=== PATIENT | male | born 1985 | race Two or more races ===

== ENCOUNTER 2022-07-14 18:13 | Emergency (ER) | payer OTHER ==
[~2022-07-14] VITALS: Ht 193 cm; Wt 163.3 kg
[2022-07-14 18:18] VITALS: BP 161/95
--- NOTE | 2022-07-14 20:16 | NUR ---
Dr. Gregory examining patient.
[2022-07-14] MEDS ORDERED: GABAPENTIN 300 MG CAP PO ONE (20:25)
[2022-07-14] MEDS ORDERED: KETOROLAC 15 MG/ML VIAL IVP ONE (20:25)
[2022-07-14] MEDS ORDERED: methylPREDNISolone SS 125 MG/2 ML VIAL IVP ONE (20:25)
[2022-07-14 20:32] LABS: BASOPHILS % (AUTO) 0.3 % (0.0-2.0); EOSINOPHILS % (AUTO) 0.1 % (0.0-4.0); HEMATOCRIT 46.6 % (36-52); HEMOGLOBIN 15.5 g/dL (12.0-18.0); LYMPHOCYTES # (AUTO) 0.9 K/uL (2.0-11.5); LYMPHOCYTES % (AUTO) 7.3 % (20.5-51.1); MEAN CORPUSCULAR HEMOGLOBIN 28 pg (27-31); MEAN CORPUSCULAR HGB CONC 33 g/dL (33-37); MEAN CORPUSCULAR VOLUME 84.2 fL (80-94); MONOCYTES # (AUTO) 0.6 K/uL (0.8-1.0); MONOCYTES % (AUTO) 4.8 % (1.7-9.3); NEUTROPHILS # (AUTO) 10.3 K/uL (1.8-7.7); NEUTROPHILS % (AUTO) 87.5 % (42.2-75.2); PLATELET COUNT (AUTO) 228 K/uL (140-450); RED BLOOD CELL COUNT(AUTO) 5.53 MIL/uL (4.20-6.10); RED CELL DISTRIBUTION WIDTH 15.5 % (11.6-13.7); WHITE BLOOD COUNT (AUTO) 11.8 K/uL (4.8-10.8)
--- NOTE | 2022-07-14 20:32 | NUR ---
PT TAKEN TO BED 5
--- NOTE | 2022-07-14 20:45 | NUR ---
36 Y/O MALE BIBA FROM HOME C/O LOWER BACK PAIN RADIATING DOWN BILATERA LEGS X2 DAYS. PT REPORTS GOING TO [facility] LAST NIGHT AND WAS GIVEN ROBAXIN, NAPROXEN, LISINOPRIL AND PREDNISONE, PT TOOK THESE X1.5 HRS AGO. PT REPORTS NO RELIEF FROM MEDS. PT REPORTS HE HAS ONLY BEEN ABLE TO URINATE X1 TODAY. PT REPORTS NUMBNESS TO BILATERAL LEGS. DENIES RECENT INJURY/TRAUMA/FALLS PMH:HTN, PRE DM, CHRONIC BACK PAIN (X12 YRS) NKDA
[2022-07-14 20:54] LABS: ALBUMIN 4.3 g/dL (3.4-5.0); ANION GAP 12.2 (8-16); CARBON DIOXIDE 27.1 mmol/L (21-32); CREATININE 0.8 mg/dL (0.6-1.3); POTASSIUM 4.3 mmol/L (3.5-5.1); TOTAL BILIRUBIN 0.6 mg/dL (0.0-1.0)
--- NOTE | 2022-07-14 21:15 | NUR ---
Dr. Gregory examining patient.
--- NOTE | 2022-07-14 22:31 | NUR ---
PT RETURN CT
[2022-07-14] MEDS ORDERED: MORPHINE SULFATE 4 MG/ML SYR IVP ONE (22:35)
--- NOTE | 2022-07-14 23:55 | NUR ---
hilliard catheter inserted with immediate return dark aldair/ rust colored urine. ua to lab
[2022-07-15 00:23] LABS: APPEARANCE,URINE CLEAR (CLEAR); BILIRUBIN,URINE 1+ (NEGATIVE); BLOOD, URINE 3+ (NEGATIVE); COLOR,URINE BROWN (YELLOW); LEUKOCYTE ESTERASE ,URINE NEGATIVE (NEGATIVE); NITRITE, URINE NEGATIVE (NEGATIVE); PH,URINE 5.5 (5.0-9.0); UGLUCOSE NEGATIVE (NEGATIVE)
[2022-07-15 00:28] LABS: RBC,URINE TOO NUMEROUS TO COUN /HPF (0-5); WBC,URINE 0-5 /HPF (0-5)
[2022-07-15 02:00] VITALS: BP 148/78
[2022-07-15] MEDS ORDERED: cephALEXin 500 MG CAP PO ONE (03:00)
[2022-07-15] MEDS ORDERED: MORPHINE SULFATE 4 MG/ML SYR IVP ONE (03:00)
[2022-07-15] MEDS ORDERED: cephALEXin 500 MG CAP ONE (04:33)
[2022-07-15] MEDS ORDERED: MORPHINE SULFATE 4 MG/ML SYR ONE (04:34)
--- NOTE | 2022-07-15 04:50 | NUR ---
[facility] TRANSPORT AT BEDSIDE
--- NOTE | 2022-07-15 05:10 | NUR ---
Patient to be transferred to [facility]. Is being transferred due to repatriation. Receiving facility has accepting physician and available space. ER physician has signed transfer form. Patient or responsible alliance party has agreed to transfer and signed form. Patient belongings inventoried and will be sent with patient. Copy of nursing notes, lab reports, EKG, Physicians Orders and X-rays to be sent with patient. Report called to charge nurse at receiving facility. ambulance service here for transfer.
--- NOTE | 2022-07-15 05:10 | NUR ---
PT TAKEN BY [facility] TRANSPORT TO [facility]
== END 2022-07-15 05:10 | disposition short-term general hospital (02) ==
LOC: MED 18:13
DX: N39.0 Urinary tract infection, site not specified (principal)
CPT/HCPCS: 36415; 72128; 72131; 80053; 81001; 85025; 96374; 96375; 96376; 99285; J1885; J2270; J2930